=== PATIENT | male | born 1965 | race Caucasian/White ===

== ENCOUNTER 2018-12-02 17:04 | Observation (INO) | payer BC ==
[~2018-12-02] VITALS: Ht 175.3 cm; Wt 100.8 kg
--- NOTE | ~2018-12-02 | HEMODYNAMI ---
PATIENT:HERBERT FRANKEL MEDICAL RECORD: [id number] : 63 [facility] [id number] ADMISSION DATE: 12/02/18 Generatedon:12/03/201814:17 Patient name: HERBERT FRANKEL Patient #: [id number] SN: : 1965 Date of study: 12/03/2018 Page: Of Hemodynamic Procedure Report Patient Data Patient Demographics Procedure consent was obtained First Name: HERBERT Gender: Male Last Name: MARLYS : 1965 Middle Initial: H Age: 53 year(s) Patient #: [id number] Race: Unknown Additional ID: [id number] Contact details Address: [address] [place] [address] State: [place] City: [place] Zip code: [address] Past Medical History Allergies: No known allergies Admission Admission Data Admission Date: 12/02/2018 Admission Time: 17:04 Room #: D2118 Lab Results Lab Result Date: 12/03/2018 Lab Result Time: 0:00 Biochemistry Name Units Result Min Max BUN mg/dl 20 --(----)*- 7 18 Creatinine mg/dl 1.3 --(---*)-- 0.6 1.3 CBC Name Units Result Min Max Hemoglobin g/dl 14.1 --(*---)-- 13.5 17.5 Procedure Procedure Types Cath Procedure Diagnostic Procedure LHC [facility] w/Coronaries Sedation Charges Moderate Sedation up to 15 minutes Procedure Description Procedure Date Procedure Date: 12/03/2018 Procedure Start Time: 13:46 Procedure End Time: 14:16 Procedure Staff Name Function Bill Zhang MD Performing Physician Anita Candelario RT Monitor Dhaval Salazar RT Scrub Tk Waite RN Nurse Ac Merchant RN [employer] Procedure Data Cath Procedure Fluoroscopy Diagnostic fluoroscopy Total fluoroscopy Time: 5.9 time: 5.9 min min Diagnostic fluoroscopy Total fluoroscopy dose: 698 dose: 698 mGy mGy Contrast Material Contrast Material Type Amount (ml) Isovue 300 59 Entry Location Entry Primary Successful Side Size Upsize Upsize Entry Closure Succes sful Closure Location (Fr) 1 (Fr) 2 (Fr) Remarks Device Remarks Radial Right 6 Fr artery Short Femoral Right 5 Fr Exoseal artery Estimated blood loss: 10 ml Diagnostic catheters Device Type Used For End Catheter Placement DIAGNOSTIC [place] 110cm 5 Procedure Fr catheter ([id number]) MULTIPACK JL 4.0 5Fr Procedure catheter MULTIPACK 3DRC 5Fr Procedure catheter Procedure Complications No complications Procedure Medications Medication Administration Route Dosage 0.9% NaCl I.V. 100 ml/hr Oxygen etCO2 Nasal cannula 2 l/min Heparin Flush Bag added to field 2 bags (1000units/500ml NS) Lidocaine 2% added to field 20 Radial Cocktail added to field 1 syringe (Verapomil 2mg/Nitro 400mcg/Heparin 1500units) Versed I.V. 2 mg Fentanyl I.V. 100 mcg Radial Cocktail I.A. 1 syringe (Verapomil 2mg/Nitro 400mcg/Heparin 1500units) Versed I.V. 2 mg Hemodynamics Rest HGB: 14.1 (g/dl) Heart Rate: 73 (bpm) Pressure Samples Time Site Value (mmHg) Purpose Heart Use Rate(bpm) 13:59 LV 105/-1,10 Snapshot 101 Gradients Valve Time Site Site Mean SEP/DFP Peak To Heart Use 1 2 (mmHg) (sec/min) Peak Rate (mmHg) (bpm) Aortic 13:59 LV AO 90 Snapshots Pre Cath Intra NCS Post Cath Vital Signs Time Heart Resp SPO2 etCO2 NIBP (mmHg) Rhythm Pain Sedation Rate (ipm) (%) (mmHg) Status Level (bpm) 13:36:47 70 10 98 38.4 110/74(92) NSR 0 (11) 10(A) , No pain 13:40:51 80 19 93 21 100/71(95) NSR 0 (11) 10(A) , No pain 13:44:51 79 16 91 29.3 101/69(97) NSR 0 (11) 10(A) , No pain 13:48:48 75 20 92 32.4 113/77(100) NSR 0 (11) 10(A) , No pain 13:52:54 76 18 95 18.8 112/67(86) NSR 0 (11) 10(A) , No pain 13:57:04 90 17 90 15.8 84/55(78) NSR 0 (11) 9(A) , No pain 14:01:01 83 18 92 34.6 93/58(86) NSR 0 (11) 9(A) , No pain 14:05:11 79 13 94 9 101/49(77) NSR 0 (11) 10(A) , No pain 14:09:13 84 14 92 37.6 96/63(85) NSR 0 (11) 10(A) , No pain 14:13:15 79 10 93 38.3 99/62(83) NSR 0 (11) 10(A) , No pain Medications Time Medication Route Dose Verified Delivered Reason Notes Effectiveness by by 13:35:59 0.9% NaCl I.V. 100 Tk Tk Per ml/hr Ravindra Waite physician RN RN 13:36:10 Oxygen etCO2 2 l/min Tk Tk for low 02 Nasal Lorigan Ravindra sats cannula RN RN 13:36:20 Heparin Flush added 2 bags Tk Tk used for Bag to Ravindra Waite procedure (1000units/500ml field GRANADO RN NS) 13:36:32 Lidocaine 2% added 20ml Tk Tk for local to vial Lorigan Lorjayna anesthetic field GRANADO RN 13:36:47 Radial Cocktail added 1 Tk Tk used for (Verapomil to syringe Lorigan Lorigan procedure 2mg/Nitro field GRANADO RN 400mcg/Heparin 1500units) 13:42:15 Versed I.V. 2 mg Tk Tk for sedation Ravindra Waite RN RN 13:42:31 Fentanyl I.V. 100 mcg Tk Tk for sedation Ravindra Waite RN RN 13:54:29 Radial Cocktail I.A. 1 Tk Bill for (Verapomil syringe Lorigan Vicente vasodilation 2mg/Nitro LOY DAVIDSON 400mcg/Heparin 1500units) 14:05:29 Versed I.V. 2 mg Tk Tk for sedation Ravindra Waite RN opener verifier packer customs Log Time Note 13:16:14 Ac Merchant RN sent for patient. Start room use. 13:16:15 Diagnostic Cath status Elective 13:16:16 Signed procedure consent form obtained from patient. 13:16:17 Time tracking: Regular hours (M-F 7:00 - 5:00) 13:16:20 Plan of Care:Hemodynamics will remain stable., Cardiac rhythm will remain stable., Comfort level will be maintained., Respiratory function will remain adequate., Patient/ family verbilizes understanding of procedure., Procedure tolerated without complication., Recovers from procedure without complications.. 13:17:04 H&P Date Dictated: 12/02/2018 Within 30 days and on chart.. 13:17:08 Patient allergic to No known allergies 13:17:30 Lab Result : Creatinine 1.3 mg/dl 13:17:30 Lab Result : BUN 20 mg/dl 13:17:30 Lab Result : Hemoglobin 14.1 g/dl 13:23:52 Patient received from Med II to CCL 2 Alert and oriented. Tansferred to table in Supine position. 13:23:53 Warm blankets applied, and rickie hugger turned on for patient comfort. 13:23:54 Correct patient and procedure confirmed by team. 13:23:55 ECG and BP/O2 sat monitors applied to patient. 13:35:43 Vital chart was started 13:35:44 Baseline sample Acquired. 13:35:47 Rhythm: sinus rhythm 13:35:48 Full Disclosure recording started 13:35:48 Pre-procedure instructions explained to patient. 13:35:48 Pre-op teaching completed and patient verbalized understanding. 13:35:50 Family in patients room. 13:35:52 Patient NPO since Midnight. 13:35:54 Is patient on blood thinner?Yes 13:35:59 0.9% NaCl 100 ml/hr I.V. was administered by Tk Waite RN; Per physician; 13:36:05 ELIQUIS YESTERDAY MORNING 13:36:07 Patient diabetic? No. 13:36:09 Previous problem with sedation/anesthesia? No ? 13:36:10 Oxygen 2 l/min etCO2 Nasal cannula was administered by Tk Waite RN; for low 02 sats; 13:36:10 Snore? Yes 13:36:11 Sleep apnea? Yes 13:36:12 Deviated septum? No 13:36:12 Opens mouth fully? Yes 13:36:13 Sticks out tongue? Yes 13:36:15 Airway obstruction? No ? 13:36:16 Dentures? No ? 13:36:18 Modified Juan David's test Ulnar < 7 seconds 13:36:20 Heparin Flush Bag (1000units/500ml NS) 2 bags added to field was administered by Tk Waite RN; used for procedure; 13:36:20 Patient pain scale 0/10 ?. 13:36:23 IV patent on arrival in left hand with 0.9% NaCl at [facility]. 13:36:25 Lab results completed and on chart. 13:36:27 Right Radial & Right Groin area was prepped with chlora-prep and draped in sterile fashion 13:36:28 Alarms reviewed by R. N. 13:36:28 Sharps counted by scrub and verified by R.N. 13:36:30 Use device set Radial Dx or PCI 13:36:31 ACIST Syringe (93073) opened to sterile field. 13:36:32 Lidocaine 2% 20ml vial added to field was administered by Tk Waite RN; for local anesthetic; 13:36:32 Medline Cath Pack ([id number]) opened to sterile field. 13:36:33 ACIST Hand Control (55961) opened to sterile field. 13:36:33 ACIST Manifold (87014) opened to sterile field. 13:36:37 Bag Decanter (2002S) opened to sterile field. 13:36:39 Tegaderm 4 x 4 (1626W) opened to sterile field. 13:36:40 DIAGNOSTIC WIRE .035 260cm J wire (361644) opened to sterile field. 13:36:41 MBrace Wrist Support ([id number]) opened to sterile field. 13:36:42 SHEATH 6FR Slender (80-1060) opened to sterile field. 13:36:47 Radial Cocktail (Verapomil 2mg/Nitro 400mcg/Heparin 1500units) 1 syringe added to field was administered by Tk Waite RN; used for procedure; 13:41:07 --------ALL STOP TIME OUT------ 13:41:07 Final Timeout: patient, procedure, and site verified with staff and physician. All members of the team are in agreement. 13:41:11 Right Radial & Right Groin site verified by team. 13:41:14 Fire Safety Assessment: A--An alcohol-based skin anteseptic being used preoperatively., C--Open oxygen or nitrous oxide is being used., D--An ESU, laser, or fiber-optic light is being used. 13:41:16 Physical assessment completed. ASA score P 2 - A patient with mild systemic disease as per Bill Zhang MD. 13:41:19 Sedation plan: IV Moderate Sedation Medication:Versed, Fentanyl 13:42:15 Versed 2 mg I.V. was administered by Tk Waite RN; for sedation; 13:42:31 Fentanyl 100 mcg I.V. was administered by Tk Waite RN; for sedation; 13:42:44 Zero performed for pressure channel P1 13:45:56 Procedure started. 13:46:01 Local anesthetic to right radial artery with Lidocaine 2% by Bill Zhang MD.INITIAL ACCESS ONLY 13:53:29 A 6 Fr Short sheath was inserted into the Right Radial artery 13:53:46 A DIAGNOSTIC [place] 110cm 5 Fr catheter (690225) was advanced over the wire and used for Procedure. 13:54:29 Radial Cocktail (Verapomil 2mg/Nitro 400mcg/Heparin 1500units) 1 syringe I.A. was administered by Bill Zhang MD; for vasodilation; 13:58:02 GLIDE WIRE ANGLE 260cm (TD5973) opened to sterile field. 13:58:18 GLIDE WIRE USED TO ADVANCE CATHETER 13:58:45 LV gram done using SCHWARTZ 13:58:58 Injector settings: Ml/sec: 7, Volume: 15, 13:59:26 LV hemodynamics recorded. 13:59:43 EF : 55 % 14:01:45 UNSUCCESSFUL AROUND AORTA. WILL GO GROIN 14:01:49 Catheter removed. 14:02:02 SHEATH 5FR [place] (UOP733) opened to sterile field. 14:02:11 Use device set Multipack Set 14:02:13 DIAGNOSTIC Multipack 5Fr catheter set (LN4941) opened to sterile field. 14:02:19 Local anesthetic to right femoral artery with Lidocaine 2% by Bill Zhang MD.ADDITIONAL ACCESS 14:03:21 A 5 Fr sheath was inserted into the Right Femoral artery 14:04:12 A MULTIPACK JL 4.0 5Fr catheter was advanced over the wire and used for Procedure. 14:05:29 Versed 2 mg I.V. was administered by Tk Waite RN; for sedation; 14:05:47 LCA angiography performed. 14:06:01 Catheter removed. 14:06:09 A MULTIPACK 3DRC 5Fr catheter was advanced over the wire and used for Procedure. 14:07:24 RCA angiography performed. 14:07:27 Catheter removed. 14:07:55 EXOSEAL 5Fr (EX500) opened to sterile field. 14:08:09 Sheath removed intact; hemostasis achieved with Exoseal to the Right Femoral artery. 14:08:18 Procedure ended.(Physican Out) 14:08:43 TR BAND Standard ([id number]) opened to sterile field. 14:09:27 Post-op/insertion site Right Femoral artery dressed using a 4 x 4 and Tegaderm. 14:09:36 Fluoroscopy time 05.90 minutes. 14:09:40 Fluoroscopy dose: 698 mGy 14:09:40 Flurop Dose total: 698 14:09:43 Contrast amount:Isovue 300 59ml. 14:15:15 TR band inflated with 8cc of air. 14:15:26 Post-procedure physical assessment completed. ASA score P 2 - A patient with mild systemic disease as per Bill Zhang MD. 14:15:28 Post procedure rhythm: sinus rhythm 14:15:30 Estimated blood loss: 10 ml 14:15:31 Post procedure instruction explained to patient.Patient verbalizes understanding. 14:15:32 Patient needs reinforcement of post procedure teaching. 14:15:51 Procedure type changed to Cath procedure, Diagnostic procedure, LHC, LHC w/Coronaries, Sedation Charges, Moderate Sedation up to 15 minutes 14:16:14 Procedure and supply charges have been captured, reviewed, submitted and are correct. 14:16:17 Procedure Complication : No complications 14:16:19 Vital chart was stopped 14:16:22 See physician's report for complete and final results. 14:16:24 Report given to PCU. 14:16:31 Patient transfered to PCU with Bed. 14:16:33 Procedure ended. 14:16:33 Full Disclosure recording stopped 14:16:38 End room use (Document Last) Device Usage Item Name Manufacture Quantity Catalog Hospital Part Current Minimal Lot# / Number Charge Number Stock Stock Serial# Code ACIST Acist 1 61871 [id number] 727288 245002 20 ams [id number] Medline Medline 1 [id number] 748351 43504 539046 5 Cath Pack ([id number]) ACIST Hand Acist 1 06552 426483 662774 428185 5 Control Medical (41643) Systems Inc ACIST Acist 1 21798 428517 898617 082957 5 Manifold Medical (12500) Systems Inc Bag Microtek 1 2001S 491805 31266 959499 5 Decanter Medical Inc. (2001S) Tegaderm 4 3M 1 1626W 264567 345280 416521 5 x 4 (1626W) DIAGNOSTIC [facility] [place] 1 828243 551324 642116 072427 30 WIRE .035 260cm J wire (333785) MBrace Advanced 1 140-0250-00 022743 73718 407429 5 Wrist Vascular Support Dynamics ([id number]) SHEATH 6FR Terumo 1 [id number] 304010 548100 184053 5 Slender (80-1060) DIAGNOSTIC Terumo 1 40-6773 933319 890177 080044 5 [place] 110cm 5 Fr catheter (663532) GLIDE WIRE Terumo 1 OP4879 254728 919520 134498 5 ANGLE 260cm (WH9409) SHEATH 5FR Terumo 1 VVE436 505571 140925 684027 5 [place] (VJR954) DIAGNOSTIC Cardinal 1 IG3433 314664 32317 702557 30 Multipack Health 5Fr catheter set (CL8705) MULTIPACK Cardinal 1 684368 5 JL 4.0 5Fr Health catheter MULTIPACK Cardinal 1 495135 5 3DRC 5Fr Health catheter EXOSEAL 5Fr Cardinal 1 EX500 519896 348054 829588 10 (EX500) Health TR BAND [place]umo 1 [id number] 098396 094485 694725 40 Standard ([id number]) Signature Audit Bernice Stage Time Signature Unsigned Intra-Procedure 12/03/2018 Anita Kodak 2:17:10 PM RT(R) Signatures Monitor : Anita Candelario Signature : RT Date : Time : [facility] [address] [place] [address]
--- NOTE | 2018-12-02 17:22 | NUR ---
NEW ADMIT TRANSFERED FROM ADMISSIONS. OREINTED TO ROOM. CALL LIGHT IN REACH. WILL CONT. PLAN OF CARE.
[2018-12-02] MEDS ORDERED: RANITIDINE HCL150 M1 PO (17:41)
[2018-12-02] MEDS ORDERED: ELIQUIS5 MG PO (17:41)
[2018-12-02] MEDS ORDERED: PROPRANOLOL HCL60 MG PO (17:41)
[2018-12-02 17:43] VITALS: BP 125/80; BMI 31.8
[2018-12-02 18:15] LABS: BASOPHILS 0.9 % (0-2); EOSINOPHILS 2.7 % (0-7); HEMATOCRIT 43.6 % (42.0-54.0); HEMOGLOBIN 14.7 g/dL (13.5-17.5); IMMATURE GRANULOCYTES 0.2 % (0-5); LYMPHOCYTES 31.2 % (15-50); MCH 31.7 pg (26.0-34.0); MCHC 33.7 g/dL (31.0-37.0); MEAN PLATELET VOLUME 9.7 fL (7.4-10.4); MONOCYTES 10.5 % (2-11); NEUTROPHILS 54.5 % (40-80); PLATELET COUNT 209 10x3/uL (130-400); RBC 4.64 10x6/uL (4.20-6.10); RDW 12.2 % (11.5-14.5); WBC 5.6 10x3/uL (4.8-10.8)
[2018-12-02 18:39] LABS: ALKALINE PHOSPHATASE 36 U/L (46-116); ALT (SGPT) 20 U/L (10-68); BILIRUBIN - TOTAL 0.34 mg/dL (0.2-1.3); CALC OSMOLALITY 280 mosm/kg (275-300); CALCIUM 8.6 mg/dL (8.5-10.1); CARBON DIOXIDE 28.1 mmol/L (21.0-32.0); CHLORIDE - SERUM 103 mmol/L (98-107); CREATININE - SERUM 1.2 mg/dL (0.6-1.3); GLUCOSE 93 mg/dL (74-106); POTASSIUM - SERUM 4.1 mmol/L (3.5-5.1); PROTEIN - SERUM 7.4 g/dL (6.4-8.2); SODIUM 140 mmol/L (136-145); UREA NITROGEN 17 mg/dL (7-18); eGFR NON AFRICAN AMERICAN 67 mL/min (90-120)
[2018-12-02 18:53] LABS: AMYLASE - SERUM 79 U/L (25-115); CKMB 4.9 U/L (0.0-3.6); CREATINE KINASE 248 UL (21-232); LIPASE 181 U/L (73-393); THYROID STIMULATING HORMONE 4.61 uIU/mL (0.36-3.74)
[2018-12-02 18:54] LABS: TROPONIN-I < 0.017 ng/mL (0.000-0.060)
--- NOTE | 2018-12-02 19:33 | NUR ---
RECIEVED UP IN BED WITH SPOUSE AT BEDSIDE. ALERT AND ORIENTED X4. UP AD AYSE. DR. LOUIS IN TO SEE PT. REPORTED DIRECT ADMIT. DENIES ANY NEEDS AT THIS TIME.
[2018-12-02 19:47] VITALS: Ht 175.3 cm; Wt 100.8 kg
[2018-12-02 21:03] VITALS: BP 113/80
[2018-12-02 23:33] LABS: APPEARANCE CLEAR (CLEAR); BILIRUBIN NEGATIVE (NEGATIVE); COLOR YELLOW (YELLOW); GLUCOSE NEGATIVE (NEGATIVE); KETONE NEGATIVE (NEGATIVE); NITRITE NEGATIVE (NEGATIVE); PROTEIN NEGATIVE (NEGATIVE); UROBILINOGEN NORMAL (NORMAL)
[2018-12-03 00:32] LABS: CKMB 4.1 U/L (0.0-3.6); CREATINE KINASE 197 UL (21-232); TROPONIN-I < 0.017 ng/mL (0.000-0.060)
[2018-12-03 01:03] VITALS: BP 92/62
[2018-12-03 06:21] VITALS: BP 109/67
[2018-12-03 06:49] LABS: BASOPHILS 1.3 % (0-2); EOSINOPHILS 3.3 % (0-7); HEMATOCRIT 42.7 % (42.0-54.0); HEMOGLOBIN 14.1 g/dL (13.5-17.5); IMMATURE GRANULOCYTES 0.2 % (0-5); LYMPHOCYTES 32.4 % (15-50); MCH 31.3 pg (26.0-34.0); MCV 94.9 fL (80.0-100.0); MEAN PLATELET VOLUME 10.2 fL (7.4-10.4); MONOCYTES 10.9 % (2-11); NEUTROPHILS 51.9 % (40-80); PLATELET COUNT 218 10x3/uL (130-400); RDW 12.4 % (11.5-14.5); WBC 4.8 10x3/uL (4.8-10.8)
[2018-12-03 07:18] LABS: ALBUMIN 3.5 g/dL (3.4-5.0); ALKALINE PHOSPHATASE 28 U/L (46-116); ALT (SGPT) 21 U/L (10-68); BILIRUBIN - TOTAL 0.55 mg/dL (0.2-1.3); CALC OSMOLALITY 285 mosm/kg (275-300); CALCIUM 8.6 mg/dL (8.5-10.1); CARBON DIOXIDE 27.8 mmol/L (21.0-32.0); CHLORIDE - SERUM 104 mmol/L (98-107); CHOL - HDL RATIO 3.8 ratio (2.3-4.9); CHOLESTEROL, TOTAL 174 mg/dL (0-200); CKMB 3.4 U/L (0.0-3.6); CREATINE KINASE 158 UL (21-232); CREATININE - SERUM 1.3 mg/dL (0.6-1.3); GLUCOSE 93 mg/dL (74-106); HDL CHOLESTEROL 46 mg/dL (32-96); LDL CHOLESTEROL 113 mg/dL (0-100); LDL-HDL RATIO 2.5 ratio (1.5-3.5); MAGNESIUM - SERUM 2.1 mg/dL (1.8-2.4); POTASSIUM - SERUM 4.3 mmol/L (3.5-5.1); PROTEIN - SERUM 6.8 g/dL (6.4-8.2); SODIUM 142 mmol/L (136-145); TRIGLYCERIDE 76 mg/dL (30-200); TROPONIN-I < 0.017 ng/mL (0.000-0.060); UREA NITROGEN 20 mg/dL (7-18); eGFR NON AFRICAN AMERICAN 61 mL/min (90-120)
[2018-12-03 09:06] VITALS: BP 105/76
[2018-12-03 13:06] VITALS: BP 125/76
--- NOTE | 2018-12-03 13:25 | CN ---
PATIENT NAME:HERBERT FRANKEL MEDICAL RECORD: [id number] : 63 LOCATION:[facility] D.2118 ADMIT DATE: 12/02/18 ACCOUNT: [id number] CONSULTING PHYSICIAN: ADELSO PLASCENCIA MD REFERRING PHYSICIAN: JEREMY LOUIS MD DATE OF CONSULTATION: 12/03/2018 HISTORY OF PRESENT ILLNESS: A 53-year-old gentleman with known history of coronary artery disease, has a history of factor V deficiency, admitted with chest pain, burning, radiating to the jaw, left side, some pleuritic component. Does have a family history of coronary artery disease as well as clotting disorders. Initial presentation for clotting disorder was DVT. Last dose of Eliquis was yesterday morning. We are asked to see him concerning his cardiovascular status. PAST MEDICAL HISTORY: Includes history of Von Leidens. ALLERGIES: None known. MEDICATIONS: Propranolol 60 daily, Eliquis 5 every day. SOCIAL HISTORY: Nonsmoker, nondrinker. Stays active. No set exercise program. REVIEW OF SYSTEMS: The patient reports easy bruising but reports no swollen glands. The patient reports no fever, no night sweats, no significant weight gain, no significant weight loss. No significant exercise tolerance. The patient reports no dry eyes, no irritation, no vision change. Patient reports no difficulty hearing and no ear pain. Patient reports no frequent nose bleeds or nose and sinus problems. Patient reports on arm pain on exertion. No shortness of breath while lying down. No history of heart murmur. Patient reports no cough, no wheezing or coughing up blood. Patient reports no abdominal pain, no vomiting. Normal appetite. No diarrhea and not vomiting blood. No nausea and no constipation. Patient reports no incontinence. No difficulty urinating. No hematuria. No increased frequency. Patient reports no muscle aches. No weakness, no arthralgias, no back pain. No swelling of the extremities. Patient reports no abnormal mole, no jaundice, no rashes. Reports no loss of consciousness. No weakness and no numbness. No seizures, dizziness, or headaches. The patient reports no depression, no sleep disturbance, feeling safe in a relationship and no alcohol abuse. Patient reports on fatigue. Reports no runny nose or sinus pressure. No itching, no hives, and no frequent sneezing. PHYSICAL EXAMINATION: GENERAL: Pleasant gentleman in no acute distress, appears stated age. VITAL SIGNS: Blood pressure 109/67, pulse 68 and regular. HEENT: Normocephalic, atraumatic. NECK: No bruits noted. HEART: Regular, II/ systolic ejection murmur. LUNGS: Good air excursion. ABDOMEN: Soft, nontender. EXTREMITIES: Pulses 2+ with no edema. DIAGNOSTIC DATA: ECG, no acute changes. IMPRESSION: Acute coronary syndrome. Family history of coronary artery CONSULT REPORT [id number] HERBERT FRANKEL disease. PLAN: For angiography, intervention based on above. TRANSINT:[id number] Voice Confirmation ID: [id number] DOCUMENT ID: [id number] ADELSO PLASCENCIA MD at 1325 CC: [id number] DICTATION DATE: 12/03/18845 HYDRAULIC MODELING ENGINEER: 12/03/18 0951 ADM IN [facility] [address] [place] [place] [id number]
--- NOTE | 2018-12-03 18:30 | NUR ---
REVIEWED DISCHARGE INSTRUCTIONS WITH PT STATES UNDERSTANDING COPY GIVEN SALINE LOCK DCD TO LFA WITH IV CATHETER INTACT SITE FREE OF REDNESS OR EDEMA PT DISCHARGED HOME IN STABLE CONDITION WITH ALL PERSONAL BELONGINGS LEFT UNIT VIA W/C
--- NOTE | 2018-12-04 09:49 | MORECARE ---
CASE MANAGEMENT DISCHARGE SUMMARY PATIENT: HERBERT FRANKEL UNIT: [id number] ADM DATE: 12/02/18 AGE: 53 : 63 SEX: M ROOM/BED: D.2118 AUTHOR: WALDO CHAMBERS PHYSICIAN: REFERRING PHYSICIAN: JEREMY LOUIS MD DATE OF SERVICE: 12/04/18 Discharge Plan Patient Name: [facility]BERT [facility]ANKEL [facility] [facility] 1965 Planned Disposition: Home Anticipated Discharge Date: 12/03/18 Discharge Date: 12/03/2018 Expected LOS: 1 Initial Reviewer: [email or web address] Initial Review Date: 12/04/2018 Generated: 12/04/18 10:49 am Patient Name: HERBERT FRANKEL Page [id number] at 0949 All edits/amendments must be made on the electronic document DICTATION DATE: 12/04/18947 FINANCIAL SYSTEMS DIRECTOR: REBECCA 12/04/18947 RPT#: [id number] DC DATE:12/03/18 STATUS: DIS IN [facility] [address] [place] [address] END OF REPORT
--- NOTE | 2018-12-10 14:51 | OP ---
PATIENT NAME: HERBERT FRANKEL MEDICAL RECORD: [id number] :63 LOCATION:D. D.2118 ADMISSION DATE:12/02/18 SURGEON: ADELSO PLASCENCIA MD DATE OF OPERATION: 12/02/2018 PROCEDURES: Left heart catheterization, selective coronary angiography via right radial artery and right femoral artery; due to tortuosity, unable to engage the coronaries radially and switched to femoral for coronary engagement. FINDINGS: Left ventriculography in 30-degree SCHWARTZ view: Normal wall motion and normal systolic function. CORONARY ANATOMY: LEFT MAIN: Left main is free of disease. LAD: Has luminal irregularities but no flow obstructive stenosis. CIRCUMFLEX: Free of disease. RIGHT CORONARY ARTERY: Large wraparound on the right, free of disease. IMPRESSION: Normal LV systolic function, no significant coronary artery disease. TRANSINT:[id number] Voice Confirmation ID: [id number] DOCUMENT ID: [id number] ADELSO PLASCENCIA MD at 1451 CC: [id number] DICTATION DATE: 12/03/18 1443 SENIOR NET ENGINEER: 12/03/182106 DIS IN 12/03/18 [facility] [address] [place] [address]
== END 2018-12-03 18:30 | disposition home or self-care (01) ==
LOC: D.M2 17:04 → OBSVTIME 17:11 → D.M2 12-03 18:30
PROVIDERS: ADMIT Family Medicine
DX: R07.9 Chest pain, unspecified (principal); D68.51 Activated protein C resistance; K21.9 Gastro-esophageal reflux disease without esophagitis; Z87.891 Personal history of nicotine dependence; I82.503 Chronic embolism and thrombosis of unspecified deep veins of lower extremity, bilateral; Z79.01 Long term (current) use of anticoagulants

== ENCOUNTER → 2020-12-17 15:41 | Outpatient (CLI) | payer BC ==
[2018-12-02 19:47] VITALS: BMI 31.8
--- NOTE | ~2020-12-17 | HEMODYNAMI ---
PATIENT:HERBERT FRANKEL MEDICAL RECORD: [id number] : 63 [id number] ADMISSION DATE: 12/17/20 Generatedon:116:20 Patient name: HERBERT FRANKEL Patient #: [id number] S SN: : 1965 Date of study: 12/17/2020 Page: Of Hemodynamic Procedure Report Patient Data Patient Demographics Procedure consent was obtained First Name: HERBERT Gender: Male Last Name: MARLYS : 1965 Middle Initial: H Age: 55 year(s) Patient #: [id number] Race: Unknown Additional ID: [id number] Contact details Address: [address] [place] [address] State: [place] City: [place] Zip code: [address] Past Medical History Allergies: No known allergies Admission Admission Data Admission Date: 12/17/2020 Admission Time: 15:41 Procedure Procedure Types Cath Procedure Peripheral Cath Diagnostic Procedure PICC PICC Line Placement Procedure Description Procedure Date Procedure Date: 12/17/2020 Procedure Start Time: 16:06 Procedure Staff Name Function Cameron Mary MD Performing Physician Iliana Aguilar RT Engagement Director Frances Byers RN Nurse Cesar Hamilton RT Scrub Procedure Data Cath Procedure Fluoroscopy Diagnostic fluoroscopy Total fluoroscopy Time: 0.7 time: 0.7 min min Diagnostic fluoroscopy Total fluoroscopy dose: 5 dose: 5 mGy mGy Hemodynamics Rest Pre Cath Intra NCS Post Cath Procedure Log Time Note 15:53:35 Time tracking: Regular hours (M-F 7:00 - 5:00) 15:58:00 Patient received from Other to IR Alert and oriented. Tansferred to table in Supine position. 15:58:03 Signed procedure consent form obtained from patient. 15:58:16 Patient allergic to No known allergies 15:58:20 Is patient on blood thinner?Yes 15:58:31 Right Arm area was prepped with chlora-prep and draped in sterile fashion 15:58:37 - 15:59:04 Use device set IR Diagnostic 15:59:06 Sterile Angiographic Pack opened to sterile field. 15:59:07 Bag Decanter () opened to sterile field. 15:59:15 SHIELD Sorbaview ([id number]) opened to sterile field. 15:59:16 PowerPICC 5Fr double lumen catheter opened to sterile field. 16:04:48 - 16:04:53 Physician arrived 16:04:54 --------ALL STOP TIME OUT------ 16:04:55 Final Timeout: patient, procedure, and site verified with staff and physician. All members of the team are in agreement. 16:05:16 Procedure started. 16:05:16 Full Disclosure recording started 16:06:13 Local anesthetic to right arm with Lidocaine 1% by Cameron Mary MD.INITIAL ACCESS ONLY 16:08:23 Venous access obtained using ultrasound guidance. 16:16:18 PICC line was trimmed to 44cm and advanced to the superior vena cava.Position verified under fluoroscopy. 16:17:40 Procedure ended.(Physican Out) 16:17:51 Fluoroscopy time 00.70 minutes. 16:17:54 Fluoroscopy dose: 5 mGy 16:17:54 Flurop Dose total: 5 16:17:57 Procedure and supply charges have been captured, reviewed, submitted an d are correct. 16:19:43 Patient transfered to Other with Ambulatory. Device Usage Item Name Manufacture Quantity Catalog Hospital Part Current Minimal Lot# / Number Charge Number Stock Stock Serial# Code Sterile Cardinal 1 [id number] [id number] 5 Angiographic Health Pack Bag Decanter Microtek 1 [id number] 17806 474464 5 ([facility] 1 [id number] 005518 032415 5 Sorbaview ([id number]) [facility] 1 [id number] 837230 537161 521177 5 5Fr double lumen catheter Signature Audit [place] Stage Time Signature Unsigned Intra-Procedure 12/17/2020 Iliana Aguilar 4:19:57 PM RT(R) [facility] [address] [place] [address]
[~2020-12-17 15:41] MED LIST: ELIQUIS5 MG PO; PROPRANOLOL HCL60 MG PO; RANITIDINE HCL150 M1 PO
== END | disposition home or self-care (01) ==
LOC: D.RAD 15:41
PROVIDERS: ATTEND Family Medicine
DX: Z79.899 Other long term (current) drug therapy (principal)